=== PATIENT | female | born 1990 ===

== ENCOUNTER 2016-09-25 05:46 | Emergency (ER) | payer MEDICAID, OTHER ==
--- NOTE | 2016-09-25 06:08 | C.PDOC ---
History Of Present Illness 26 year old patient, with a past medical history of asthma and pneumonia, is brought to the ED by ambulance complaining of shortness of breath that began prior to arrival. Patient denies fever, nausea, or chest pain. Time Seen by Provider: 09/25/16 06:11 Chief Complaint (Nursing): Respiratory Distress History Per: Patient, EMS History/Exam Limitations: no limitations Onset/Duration Of Symptoms: Mins (prior to arrival) Current Symptoms Are (Timing): Still Present Quality: Tightness Current Respiratory Medications: See Home Med List Severity: Mild Pain Scale Rating Of: 3 Recent travel outside of the [place]: No Additional History Per: EMS Past Medical History Reviewed: Historical Data, Nursing Documentation, Vital Signs Vital Signs: Last Vital Signs Temp 98.5 F 09/25/16 06:45 Pulse 103 H 09/25/16 06:45 Resp 22 09/25/16 06:45 BP 139/84 09/25/16 06:45 Pulse Ox 100 09/25/16 07:10 - Medical History PMH: Asthma, Pneumonia - [facility] Procedures APPLICATION OF SPLINT (06/12/04) Family History: States: Unknown Family Hx - Social History Hx Tobacco Use: Yes Hx Alcohol Use: No Hx Substance Use: No - Immunization History Hx Tetanus Toxoid Vaccination: Yes Hx Influenza Vaccination: No Hx Pneumococcal Vaccination: No Review Of Systems Except As Marked, All Systems Reviewed And Found Negative. Constitutional: Negative for: Fever Cardiovascular: Negative for: Chest Pain Respiratory: Positive for: Shortness of Breath Gastrointestinal: Negative for: Nausea Physical Exam - Physical Exam Appears: Non-toxic, No Acute Distress Skin: Warm, Dry Head: Atraumatic, Normacephalic Oral Mucosa: Moist Neck: Normal ROM, Supple Chest: Symmetrical Cardiovascular: Rhythm Regular Respiratory: No Accessory Muscle Use, No Rales, Rhonchi (bilateral), Wheezing ( bilateral), Other (good air entry; speaking in complete sentences) Back: Normal Inspection, No CVA Tenderness Extremity: Normal ROM Neurological/Psych: Oriented x3 ED Course And Treatment - Laboratory Results Result Diagrams: 09/25/16 06:24 09/25/16 06:24 O2 Sat by Pulse Oximetry: 100 (room air) Pulse Ox Interpretation: Normal Progress Note: Plan: EKG, Labs, Magnesium Sulfate, IV fluids Disposition - Disposition Disposition Time: 07:10 Condition: STABLE - Clinical Impression Clinical Impression: Asthma - Scribe Statement The provider has reviewed the documentation as recorded by the Scribe Melani Del Rio Provider Attestation: All medical record entries made by the Scribe were at my direction and personally dictated by me. I have reviewed the chart and agree that the record accurately reflects my personal performance of the history, physical exam, medical decision making, and the department course for this patient. I have also personally directed, reviewed, and agree with the discharge instructions and disposition.
[2016-09-25] MEDS ORDERED: Magnesium Sulfate 1 gm in D5W 1 GM/100 ML BAG IVPB ONE (06:12)
[2016-09-25] MEDS ORDERED: Sodium Chloride 0.9% 1,000 ML IV ONE (06:13)
[2016-09-25 06:35] LABS: BASO # 0.1 K/uL (0.0-0.2); BASO % 0.5 % (0.0-2.0); CHLORIDE 101 mmol/L (98-107); EOS # 0.7 K/uL (0.0-0.7); EOS % 6.2 % (0.0-4.0); HEMATOCRIT 38.4 % (34.0-47.0); LYMPH # 2.1 K/uL (1.0-4.3); LYMPH % 18.2 % (20.0-40.0); MEAN CELL VOLUME 89.5 fL (81.0-99.0); MEAN CORPUSCULAR HEMOGLOBIN 29.9 pg (27.0-31.0); MEAN CORPUSCULAR HGB CONC 33.4 g/dL (33.0-37.0); MEAN PLATELET VOLUME 6.7 fL (7.2-11.7); MONO # 0.8 K/uL (0.0-0.8); MONO % 6.9 % (0.0-10.0); RED CELL DISTRIBUTION WIDTH 12.7 % (11.5-14.5); WHITE BLOOD COUNT 11.6 K/uL (4.8-10.8)
[2016-09-25 06:36] LABS: POTASSIUM 3.5 mmol/L (3.6-5.2); SODIUM 137 mmol/L (132-148)
[2016-09-25 06:38] LABS: CARBON DIOXIDE 25 mmol/L (22-30); GFR AFRICAN-AMERICAN > 60
[2016-09-25 06:39] LABS: ALB/GLOB RATIO 1.4 (1.0-2.1); ALKALINE PHOSPHATASE 66 U/L (38-126); ALT/SGPT 16 U/L (9-52); AST/SGOT 21 U/L (14-36); BILIRUBIN,TOTAL 1.3 mg/dL (0.2-1.3); BLOOD UREA NITROGEN 12 mg/dL (7-17); CALCIUM 8.4 mg/dl (8.6-10.4); GLUCOSE,RANDOM 145 mg/dL (65-105); TOTAL PROTEIN 6.9 g/dL (6.3-8.3)
[2016-09-25] MEDS ORDERED: Albuterol-Ipratrop 3 mg / 0.5 (3 ml) UD INH STA (07:02)
[2016-09-25 07:06] VITALS: TEMP 98.5
[2016-09-25 07:54] VITALS: BP 118/69; PULSE 112; RESP 15; O2SAT 98
[2016-09-25] MEDS ORDERED: Albuterol 0.083% Inhal Sol (2.5 mg/3 mL) UD INH STA ×2 (08:19→08:24)
--- NOTE | 2016-09-25 09:01 | RAD ---
HISTORY: SOB COMPARISON: Chest x-ray performed 06/20/16 TECHNIQUE: Chest, one view. FINDINGS: LUNGS: No focal consolidation. Please note that chest x-ray has limited sensitivity for the detection of pulmonary masses. PLEURA: No significant pleural effusion identified. No definite pneumothorax . CARDIOVASCULAR: The cardiomediastinal silhouette appears within normal limits of size. OSSEOUS STRUCTURES: No acute osseous abnormality identified. VISUALIZED UPPER ABDOMEN: Unremarkable. OTHER FINDINGS: None. IMPRESSION: No focal consolidation, significant pleural effusion, or definite pneumothorax identified.
--- NOTE | 2016-09-28 11:11 | CARD ---
APPROVED REPORT EKG Measurement Heart [id number] <Conclusion> Sinus tachycardia Otherwise normal ECG
== END 2016-09-25 09:09 | disposition home or self-care (01) ==
LOC: C.ER 05:46
DX: J45.909 Unspecified asthma, uncomplicated (principal); Z72.0 Tobacco use
CPT/HCPCS: 71010; 80053; 85025; 93005; 94640; 99285; J7040

== ENCOUNTER 2017-12-03 11:38 | Emergency (ER) | payer MEDICAID ==
[2017-12-03] MEDS ORDERED: Albuterol-Ipratrop 3 mg / 0.5 (3 ml) UD ONE (11:45)
--- NOTE | 2017-12-03 11:58 | C.PDOC ---
History Of Present Illness 27-YEAR-OLD FEMALE, PRESENTS TO THE EMERGENCY DEPARTMENT WITH COMPLAINTS OF ASTHMA EXACERBATION X 2 DAYS. PS INSURANCE WON'T FILL HER VENTOLIN PUMP NOW "BC IT'S TOO EARLY". USES HOME NEB ALBUTEROL. "I DON'T THINK I'D BE HERE IF I HAD MY PUMP". DENIES FEVER, OTHER NEW SX. EXAM NARD S/P NEB 96% LUNGS CTA B/L NO W/R/R NO RETRACTIONS SPEAKING FULL SENTENCES CV RRR SINUS TACH REMAINDER NEG MDM PT REQUESTING RX FOR DULERA. PREDNISONE, DC. Time Seen by Provider: 12/03/17 11:48 Chief Complaint (Nursing): Respiratory Distress History Per: Patient History/Exam Limitations: no limitations Onset/Duration Of Symptoms: Days Current Symptoms Are (Timing): Still Present Past Medical History Reviewed: Historical Data, Nursing Documentation, Vital Signs Vital Signs: Last Vital Signs Temp 98.4 F 12/03/17 12:26 Pulse 80 12/03/17 12:26 Resp 18 12/03/17 12:26 BP 122/66 12/03/17 12:26 Pulse Ox 91 L 12/03/17 13:10 - Medical History PMH: Asthma, Pneumonia - [facility] Procedures APPLICATION OF SPLINT (06/12/04) Family History: States: No Known Family Hx - Social History Hx Tobacco Use: Yes Hx Alcohol Use: No Hx Substance Use: No - Immunization History Hx Tetanus Toxoid Vaccination: Yes Hx Influenza Vaccination: No Hx Pneumococcal Vaccination: No Review Of Systems Constitutional: Negative for: Fever Cardiovascular: Negative for: Chest Pain, Palpitations Respiratory: Positive for: Shortness of Breath. Negative for: Cough Gastrointestinal: Negative for: Nausea, Vomiting Musculoskeletal: Negative for: Back Pain Neurological: Negative for: Weakness Physical Exam - Physical Exam Appears: Non-toxic, No Acute Distress Skin: Normal Color, Warm, Dry, No Rash Head: Atraumatic, Normacephalic Eye(s): bilateral: Normal Inspection, PERRL, EOMI Nose: Normal, No Flaring Oral Mucosa: Moist Lips: Normal Appearing Neck: Normal ROM Chest: Symmetrical Cardiovascular: Rhythm Regular, No Murmur Respiratory: No Decreased Breath Sounds, No Accessory Muscle Use, No Rales, No Rhonchi, No Wheezing, Other (NARD S/P NEB 96%. NO RETRACTIONS SPEAKING FULL SENTENCES) Gastrointestinal/Abdominal: Soft, No Tenderness Back: Normal Inspection Extremity: Normal ROM, No Deformity, No Swelling Neurological/Psych: Oriented x3, Normal Speech ED Course And Treatment O2 Sat by Pulse Oximetry: 91 (RA) Medical Decision Making Medical Decision Making: PT REQUESTING RX FOR DULERA. PREDNISONE, DC. Disposition Counseled Patient/Family Regarding: Diagnosis, Need For Followup, Rx Given - Disposition Referrals: [facility] [Outside] at [facility] [Outside] [facility] [Other] Disposition: HOME/ ROUTINE Disposition Time: 11:57 Condition: IMPROVED Prescriptions: Mometasone/Formoterol [Dulera] 1 henri IH BID #1 henri predniSONE [Prednisone] 60 mg PO DAILY #12 tab Instructions: Asthma, Adult (DC) Forms: [employer] (Telugu) - Clinical Impression Clinical Impression: Exacerbation of asthma - Scribe Statement The provider has reviewed the documentation as recorded by the Scribe (Silas Haq) All medical record entries made by the Scribe were at my direction and personally dictated by me. I have reviewed the chart and agree that the record accurately reflects my personal performance of the history, physical exam, medical decision making, and the department course for this patient. I have also personally directed, reviewed, and agree with the discharge instructions and disposition.
[2017-12-03 12:27] VITALS: BP 122/66; PULSE 80; RESP 18; TEMP 98.4
[2017-12-03 12:42] VITALS: O2SAT 91
== END 2017-12-03 12:28 | disposition home or self-care (01) ==
LOC: C.ER 11:38
DX: J45.901 Unspecified asthma with (acute) exacerbation (principal); F17.210 Nicotine dependence, cigarettes, uncomplicated